=== PATIENT | female | born 1985 | race Caucasian/White ===

== ENCOUNTER 2020-09-06 12:41 | Emergency (ER) | payer SELFPAY ==
[~2020-09-06] VITALS: Ht 170.2 cm; Wt 61.7 kg
--- NOTE | 2020-09-06 12:46 | NUR ---
The patient is [id number], overdose on fentanyl, narcan given on scene, denies SI/HI. Alert and oriented x4. Denies pain. In room air and denies SOB. Respiration regular and unlabored. Will continue to monitor the patient.
[2020-09-06 12:47] VITALS: BP 127/87
[2020-09-06] MEDS ORDERED: NALO4SPR NS (12:59)
--- NOTE | 2020-09-06 13:12 | NUR ---
Patient does not wish to proceed with medical care recommended by Dr. Rivas. Patient given information related to possible complications, up to and including , which could occur as a result of leaving the hospital at this time. Patient verbalizes understanding of risks involved due to leaving against medical advice. Patient has signed AMA form. The patient latricia stable gait. Alert and oriented x4.
== END 2020-09-06 13:13 | disposition left against medical advice (07) ==
LOC: ER 12:46
DX: T40.411A Poisoning by fentanyl or fentanyl analogs, accidental (unintentional), initial encounter (principal); Y92.89 Other specified places as the place of occurrence of the external cause